=== PATIENT | female | born 1935 | race Caucasian/White ===

== ENCOUNTER 2022-12-25 05:11 | Inpatient (IN) | payer OTHER ==
[~2022-12-25] VITALS: Ht 167.6 cm; Wt 68.0 kg
[2022-12-25 05:15] VITALS: BP 126/82; PULSE 80; RESP 46; TEMP 97.8; O2SAT 97
[2022-12-25] MEDS ORDERED: NACL 0.9% 1,000 ML IV ONE ×2 (05:25→08:40)
[2022-12-25 06:51] LABS: EOSINOPHILS # (AUTO) 0.1 K/uL (0-0.4); EOSINOPHILS % (AUTO) 0.9 % (0.0-4.0); HEMATOCRIT 44.7 % (36-48); HEMOGLOBIN 15.1 g/dL (12.0-16.0); LYMPHOCYTES # (AUTO) 0.3 K/uL (2.5-16.5); LYMPHOCYTES % (AUTO) 2.5 % (20.5-51.1); MEAN CORPUSCULAR HEMOGLOBIN 33 pg (27-31); MEAN CORPUSCULAR HGB CONC 34 g/dL (33-37); MEAN CORPUSCULAR VOLUME 97.1 fL (80-94); MONOCYTES # (AUTO) 0.5 K/uL (0.8-1.0); MONOCYTES % (AUTO) 4.7 % (1.7-9.3); NEUTROPHILS # (AUTO) 10.1 K/uL (1.8-7.7); NEUTROPHILS % (AUTO) 91.9 % (42.2-75.2); PLATELET COUNT (AUTO) 179 K/uL (140-450); RED BLOOD CELL COUNT(AUTO) 4.61 MIL/uL (4.20-5.40); RED CELL DISTRIBUTION WIDTH 13.7 % (11.6-13.7)
[2022-12-25 07:12] LABS: LACTIC ACID 1.1 mmol/L (0.4-2.0)
[2022-12-25 07:17] LABS: APPEARANCE,URINE CLEAR (CLEAR); BILIRUBIN,URINE NEGATIVE (NEGATIVE); BLOOD, URINE TRACE-I (NEGATIVE); COLOR,URINE YELLOW (YELLOW); LEUKOCYTE ESTERASE ,URINE NEGATIVE (NEGATIVE); NITRITE, URINE NEGATIVE (NEGATIVE); PROTEIN,URINE 1+ (NEGATIVE); UGLUCOSE NEGATIVE (NEGATIVE); UROBILINOGEN,URINE 0.2 EU/dL (0.2 - 1)
[2022-12-25 07:19] LABS: ALANINE AMINOTRANSFERASE 29 U/L (12-78); ALBUMIN 3.5 g/dL (3.4-5.0); ALKALINE PHOSPHATASE 149 U/L (50-136); ANION GAP 15.2 (8-16); ASPARTATE AMINOTRANSFERASE 48 U/L (15-37); CHLORIDE 103 mmol/L (98-107); CREATININE 0.8 mg/dL (0.6-1.3); GLUCOSE 99 mg/dL (74-106); POTASSIUM 5.2 mmol/L (3.5-5.1); SODIUM SERUM 140 mmol/L (136-145); TOTAL BILIRUBIN 0.5 mg/dL (0.0-1.0); TOTAL PROTEIN, SERUM 7.6 g/dL (6.4-8.2); UREA NITROGEN, BLOOD 39 mg/dL (7-18)
[2022-12-25 09:12] LABS: BACTERIA,URINE 10-30 (MOD) /HPF (None Seen); MUCUS,URINE None Seen /LPF (None Seen); RBC,URINE 0-5 /HPF (0-5); SQUAMOUS EPITHELIAL CELL,UR 4-10 (MOD) /LPF (0-3 (FEW)); TRICHOMONAS,URINE None Seen /HPF (None Seen); WBC,URINE 0-5 /HPF (0-5); YEAST,URINE None Seen /HPF (None Seen)
[2022-12-25 09:13] LABS: FINE GRANULAR CASTS,URINE 0-10 /LPF (None Seen)
[2022-12-25] MEDS ORDERED: OLANZapine 5 MG ODT PO ONE (09:25)
[2022-12-25] MEDS ORDERED: LORazepam 0.5 MG TAB PO ONE (09:25)
[2022-12-25] MEDS ORDERED: LORazepam 2 MG/ML VIAL IM ONE (09:30)
[2022-12-25 11:07] LABS: FLU A ANTIGEN negative (NEGATIVE); FLU B ANTIGEN NEGATIVE (NEGATIVE)
[2022-12-25] MEDS ORDERED: ACETAMINOPHEN 325 MG TAB PO PRN (11:35)
[2022-12-25] MEDS: VANCOMYCIN HCL 25 MG/ML SOLN PO SCH ×2 (12:00→18:00)
[2022-12-25] MEDS ORDERED: VANCOMYCIN 500 MG VIAL PO SCH (12:00)
[2022-12-25 19:56] VITALS: O2SAT 98
[2022-12-25 20:30] VITALS: BP 120/56; PULSE 70; PULSE 77; PULSE 80; RESP 16; RESP 18; TEMP 98; O2SAT 96; O2SAT 97
[2022-12-25] MEDS ORDERED: LEVOFLOXACIN 500 MG/D5W PREMIX 100 ML IV SCH (21:00)
[2022-12-25] MEDS: NACL 0.9% 1,000 ML IV SCH ×2 (22:24→23:44)
[2022-12-25] MEDS ORDERED: LORazepam 2 MG/ML VIAL IVP ONE (23:10)
[2022-12-26] MEDS ORDERED: LORazepam 2 MG/ML VIAL ONE (02:05)
[2022-12-26 03:00] VITALS: PULSE 70; RESP 16; O2SAT 97
[2022-12-26 04:00] VITALS: BP 116/70; PULSE 66; PULSE 74; RESP 16; TEMP 97.8; O2SAT 96
[2022-12-26] MEDS: VANCOMYCIN HCL 25 MG/ML SOLN PO SCH ×5 (05:31→23:57)
[2022-12-26 06:26] LABS: BASOPHILS % (AUTO) 0.2 % (0.0-2.0); EOSINOPHILS # (AUTO) 0.1 K/uL (0-0.4); EOSINOPHILS % (AUTO) 2.4 % (0.0-4.0); HEMATOCRIT 39.4 % (36-48); HEMOGLOBIN 13.5 g/dL (12.0-16.0); LYMPHOCYTES # (AUTO) 0.4 K/uL (2.5-16.5); LYMPHOCYTES % (AUTO) 9.6 % (20.5-51.1); MEAN CORPUSCULAR HEMOGLOBIN 33 pg (27-31); MEAN CORPUSCULAR HGB CONC 34 g/dL (33-37); MEAN CORPUSCULAR VOLUME 95.9 fL (80-94); MONOCYTES # (AUTO) 0.3 K/uL (0.8-1.0); NEUTROPHILS # (AUTO) 3.7 K/uL (1.8-7.7); NEUTROPHILS % (AUTO) 81.8 % (42.2-75.2); PLATELET COUNT (AUTO) 150 K/uL (140-450); RED BLOOD CELL COUNT(AUTO) 4.11 MIL/uL (4.20-5.40); RED CELL DISTRIBUTION WIDTH 13.6 % (11.6-13.7); WHITE BLOOD COUNT (AUTO) 4.6 K/uL (4.8-10.8)
[2022-12-26 06:36] LABS: ALANINE AMINOTRANSFERASE 16 U/L (12-78); ALKALINE PHOSPHATASE 127 U/L (50-136); ANION GAP 11.4 (8-16); ASPARTATE AMINOTRANSFERASE 21 U/L (15-37); CALCIUM 7.3 mg/dL (8.5-10.1); CARBON DIOXIDE 24.6 mmol/L (21-32); CHLORIDE 110 mmol/L (98-107); CREATININE 0.7 mg/dL (0.6-1.3); GLUCOSE 80 mg/dL (74-106); MAGNESIUM 1.8 mg/dL (1.8-2.4); PHOSPHORUS 2.8 mg/dL (2.5-4.9); SODIUM SERUM 142 mmol/L (136-145); TOTAL BILIRUBIN 0.4 mg/dL (0.0-1.0); TOTAL PROTEIN, SERUM 6.2 g/dL (6.4-8.2); UREA NITROGEN, BLOOD 28 mg/dL (7-18)
[2022-12-26 08:00] VITALS: BP 116/66; PULSE 56; PULSE 79; RESP 18; TEMP 96.2; O2SAT 100
[2022-12-26] MEDS ORDERED: FURO-572 PO (09:33)
[2022-12-26] MEDS ORDERED: [UNRECOGNIZED DRUG - CODE] PO (09:33)
[2022-12-26] MEDS ORDERED: TRAV2.5D2 OP (09:33)
[2022-12-26] MEDS ORDERED: TRAZ-343 PO (09:33)
[2022-12-26] MEDS: NACL 0.9% 1,000 ML IV SCH ×2 (11:00→17:35)
[2022-12-26 12:00] VITALS: BP 128/73; PULSE 73; PULSE 91; RESP 18; TEMP 97.2; O2SAT 96
[2022-12-26] MEDS ORDERED: HALOPERIDOL IM 5 MG/ML VIAL IM PRN (12:40)
[2022-12-26 16:00] VITALS: BP 152/87; PULSE 104; PULSE 89; RESP 18; TEMP 97.6; O2SAT 98
[2022-12-26 20:00] VITALS: BP 149/79; PULSE 111; PULSE 92; RESP 19; TEMP 99.3; O2SAT 94
[2022-12-26] MEDS: LEVOFLOXACIN 250 MG/D5 PREMIX 50 ML IV SCH (20:44)
[2022-12-27] VITALS: BP 152/83; PULSE 104; PULSE 115; RESP 18; TEMP 100.3; O2SAT 96
[2022-12-27] MEDS: NACL 0.9% 1,000 ML IV SCH ×3 (03:35→23:15)
[2022-12-27 04:00] VITALS: BP 154/98; PULSE 110; PULSE 97; RESP 18; TEMP 99.7; O2SAT 96
[2022-12-27] MEDS: VANCOMYCIN HCL 25 MG/ML SOLN PO SCH ×3 (05:46→18:00)
[2022-12-27 05:56] LABS: BASOPHILS % (AUTO) 0.2 % (0.0-2.0); EOSINOPHILS % (AUTO) 0.1 % (0.0-4.0); HEMATOCRIT 39.7 % (36-48); HEMOGLOBIN 13.8 g/dL (12.0-16.0); LYMPHOCYTES # (AUTO) 0.5 K/uL (2.5-16.5); LYMPHOCYTES % (AUTO) 5.6 % (20.5-51.1); MEAN CORPUSCULAR HEMOGLOBIN 33 pg (27-31); MEAN CORPUSCULAR HGB CONC 35 g/dL (33-37); MEAN CORPUSCULAR VOLUME 94.2 fL (80-94); MONOCYTES # (AUTO) 0.7 K/uL (0.8-1.0); MONOCYTES % (AUTO) 7.7 % (1.7-9.3); NEUTROPHILS % (AUTO) 86.4 % (42.2-75.2); PLATELET COUNT (AUTO) 178 K/uL (140-450); RED BLOOD CELL COUNT(AUTO) 4.22 MIL/uL (4.20-5.40); RED CELL DISTRIBUTION WIDTH 13.4 % (11.6-13.7); WHITE BLOOD COUNT (AUTO) 9.3 K/uL (4.8-10.8)
[2022-12-27 06:27] LABS: ALANINE AMINOTRANSFERASE 21 U/L (12-78); ALBUMIN 3.4 g/dL (3.4-5.0); ALKALINE PHOSPHATASE 128 U/L (50-136); ASPARTATE AMINOTRANSFERASE 42 U/L (15-37); CARBON DIOXIDE 19.1 mmol/L (21-32); CHLORIDE 109 mmol/L (98-107); GLUCOSE 98 mg/dL (74-106); MAGNESIUM 1.7 mg/dL (1.8-2.4); PHOSPHORUS 2.7 mg/dL (2.5-4.9); POTASSIUM 4.1 mmol/L (3.5-5.1); SODIUM SERUM 142 mmol/L (136-145); TOTAL BILIRUBIN 0.6 mg/dL (0.0-1.0); TOTAL PROTEIN, SERUM 6.6 g/dL (6.4-8.2); UREA NITROGEN, BLOOD 24 mg/dL (7-18)
[2022-12-27 08:00] VITALS: BP 124/73; PULSE 86; PULSE 92; PULSE 93; RESP 18; RESP 19; TEMP 98.2; O2SAT 95
[2022-12-27] MEDS ORDERED: OLAN2.5T1 PO (08:04)
[2022-12-27] MEDS ORDERED: ALPR0.5T2 PO (08:04)
[2022-12-27] MEDS ORDERED: ALPR0.252 PO (08:04)
[2022-12-27] MEDS ORDERED: TEMA15CA24 PO (08:04)
[2022-12-27] MEDS: LEVOTHYROXINE PO SCH (11:29)
[2022-12-27] MEDS: SODIUM BICARBONATE PO SCH (11:29)
[2022-12-27] MEDS: LIOTHYRONINE PO SCH (11:29)
[2022-12-27 12:00] VITALS: BP 123/77; PULSE 103; PULSE 83; RESP 20; TEMP 97.9; O2SAT 98
[2022-12-27 16:00] VITALS: BP 124/72; PULSE 91; PULSE 94; RESP 18; TEMP 98; O2SAT 98
[2022-12-27] MEDS ORDERED: CALCIUM GLUC 1 GM/50 mL NS BAG 50 ML IV SCH (18:00)
[2022-12-27] MEDS ORDERED: MAG SULF 2000 MG/WATER PREMIX 50 ML IV SCH (18:30)
[2022-12-27 20:00] VITALS: BP 127/85; PULSE 106; PULSE 74; PULSE 77; RESP 16; RESP 18; TEMP 99.2; O2SAT 95
[2022-12-27] MEDS: LEVOFLOXACIN 250 MG/D5 PREMIX 50 ML IV SCH (23:14)
[2022-12-28] VITALS: BP 153/92; PULSE 106; PULSE 85; RESP 18; TEMP 99; O2SAT 95
[2022-12-28] MEDS: VANCOMYCIN HCL 25 MG/ML SOLN PO SCH ×4 (01:09→18:19)
[2022-12-28 04:00] VITALS: BP 134/73; PULSE 86; PULSE 89; RESP 18; TEMP 98; O2SAT 96
[2022-12-28 06:12] LABS: ANION GAP 13.9 (8-16); CALCIUM 7.6 mg/dL (8.5-10.1); CARBON DIOXIDE 23.5 mmol/L (21-32); CHLORIDE 107 mmol/L (98-107); CREATININE 0.9 mg/dL (0.6-1.3); GLUCOSE 95 mg/dL (74-106); POTASSIUM 3.4 mmol/L (3.5-5.1); SODIUM SERUM 141 mmol/L (136-145); UREA NITROGEN, BLOOD 14 mg/dL (7-18)
[2022-12-28 06:18] LABS: BASOPHILS % (AUTO) 0.3 % (0.0-2.0); EOSINOPHILS % (AUTO) 0.5 % (0.0-4.0); LYMPHOCYTES % (AUTO) 12.8 % (20.5-51.1); MEAN CORPUSCULAR HEMOGLOBIN 33 pg (27-31); MEAN CORPUSCULAR HGB CONC 35 g/dL (33-37); MEAN CORPUSCULAR VOLUME 93.7 fL (80-94); MONOCYTES # (AUTO) 0.6 K/uL (0.8-1.0); MONOCYTES % (AUTO) 7.9 % (1.7-9.3); NEUTROPHILS # (AUTO) 6.3 K/uL (1.8-7.7); NEUTROPHILS % (AUTO) 78.5 % (42.2-75.2); PLATELET COUNT (AUTO) 163 K/uL (140-450); RED BLOOD CELL COUNT(AUTO) 4.27 MIL/uL (4.20-5.40); RED CELL DISTRIBUTION WIDTH 13.1 % (11.6-13.7)
[2022-12-28] MEDS ORDERED: LORazepam 2 MG/ML VIAL IVP PRN (06:20)
[2022-12-28] MEDS ORDERED: HALOPERIDOL IM 5 MG/ML VIAL IM PRN (06:22)
[2022-12-28 08:00] VITALS: BP 142/88; PULSE 73; PULSE 83; RESP 17; TEMP 97.3; O2SAT 97
[2022-12-28] MEDS: SODIUM BICARBONATE PO SCH (09:19)
[2022-12-28] MEDS: LEVOTHYROXINE PO SCH (09:19)
[2022-12-28] MEDS: LIOTHYRONINE PO SCH (09:19)
[2022-12-28] MEDS: NACL 0.9% 1,000 ML IV SCH ×3 (09:26→21:34)
[2022-12-28 12:00] VITALS: BP 131/74; PULSE 69; PULSE 72; RESP 18; TEMP 98.2; O2SAT 97
[2022-12-28] MEDS ORDERED: POTASSIUM CHLORIDE 10 MEQ TABER PO SCH (13:22)
[2022-12-28 16:00] VITALS: BP 153/96; PULSE 106; PULSE 98; RESP 18; TEMP 98; O2SAT 98
[2022-12-28 20:00] VITALS: BP 115/71; PULSE 70; PULSE 75; RESP 18; TEMP 97.5; O2SAT 95
[2022-12-28] MEDS: LEVOFLOXACIN 250 MG/D5 PREMIX 50 ML IV SCH (21:50)
[2022-12-29] VITALS: BP 132/80; PULSE 60; PULSE 86; RESP 18; TEMP 97.7; O2SAT 94
[2022-12-29] MEDS: VANCOMYCIN HCL 25 MG/ML SOLN PO SCH ×4 (00:29→12:38)
[2022-12-29 04:00] VITALS: BP 121/71; PULSE 70; PULSE 74; RESP 18; TEMP 98; O2SAT 97
[2022-12-29 05:31] LABS: BASOPHILS % (AUTO) 0.3 % (0.0-2.0); EOSINOPHILS # (AUTO) 0.1 K/uL (0-0.4); EOSINOPHILS % (AUTO) 1.2 % (0.0-4.0); HEMATOCRIT 36.6 % (36-48); HEMOGLOBIN 12.6 g/dL (12.0-16.0); LYMPHOCYTES # (AUTO) 1.1 K/uL (2.5-16.5); MEAN CORPUSCULAR HEMOGLOBIN 33 pg (27-31); MEAN CORPUSCULAR HGB CONC 35 g/dL (33-37); MEAN CORPUSCULAR VOLUME 94.9 fL (80-94); MONOCYTES # (AUTO) 0.6 K/uL (0.8-1.0); NEUTROPHILS # (AUTO) 5.7 K/uL (1.8-7.7); NEUTROPHILS % (AUTO) 75.5 % (42.2-75.2); PLATELET COUNT (AUTO) 145 K/uL (140-450); RED BLOOD CELL COUNT(AUTO) 3.86 MIL/uL (4.20-5.40); RED CELL DISTRIBUTION WIDTH 13.6 % (11.6-13.7); WHITE BLOOD COUNT (AUTO) 7.5 K/uL (4.8-10.8)
[2022-12-29] MEDS: NACL 0.9% 1,000 ML IV SCH (05:35)
[2022-12-29 05:46] LABS: CHLORIDE 110 mmol/L (98-107); POTASSIUM 3.7 mmol/L (3.5-5.1); SODIUM SERUM 142 mmol/L (136-145)
[2022-12-29 06:10] LABS: ALANINE AMINOTRANSFERASE 31 U/L (12-78); ALBUMIN 2.6 g/dL (3.4-5.0); ALKALINE PHOSPHATASE 93 U/L (50-136); ANION GAP 10.4 (8-16); ASPARTATE AMINOTRANSFERASE 50 U/L (15-37); CALCIUM 7.2 mg/dL (8.5-10.1); CARBON DIOXIDE 25.3 mmol/L (21-32); CREATININE 0.8 mg/dL (0.6-1.3); GLUCOSE 81 mg/dL (74-106); MAGNESIUM 1.7 mg/dL (1.8-2.4); PHOSPHORUS 2.9 mg/dL (2.5-4.9); TOTAL BILIRUBIN 0.4 mg/dL (0.0-1.0); TOTAL PROTEIN, SERUM 5.3 g/dL (6.4-8.2); UREA NITROGEN, BLOOD 14 mg/dL (7-18)
[2022-12-29] MEDS ORDERED: PHENobarbital 30 MG TAB ONE (07:59)
[2022-12-29 08:00] VITALS: BP 134/81; PULSE 65; PULSE 71; PULSE 75; RESP 18; TEMP 97.4; O2SAT 98
[2022-12-29] MEDS: LIOTHYRONINE PO SCH (08:03)
[2022-12-29] MEDS: SODIUM BICARBONATE PO SCH (08:03)
[2022-12-29] MEDS: LEVOTHYROXINE PO SCH (08:03)
[2022-12-29] MEDS ORDERED: PHENobarbital 30 MG TAB PO SCH (09:00)
[2022-12-29] MEDS ORDERED: MAG SULF 2000 MG/WATER PREMIX 50 ML IV SCH (11:00)
[2022-12-29 12:00] VITALS: BP 117/60; PULSE 61; RESP 18; TEMP 97.1; O2SAT 94
[2022-12-29 13:01] VITALS: BP 117/60; PULSE 61; TEMP 97.1
[2022-12-29] MEDS ORDERED: CALCIUM GLUC 1 GM/50 mL NS BAG 50 ML IV SCH (14:00)
== END 2022-12-29 14:30 | disposition home or self-care (01) | DRG 371 ==
LOC: MED 05:11 → MTU 11:39
PROVIDERS: ADMIT Student in an Organized Health Care Education/Training Program; ATTEND Student in an Organized Health Care Education/Training Program
DX: A04.72 Enterocolitis due to Clostridium difficile, not specified as recurrent (principal); E43 Unspecified severe protein-calorie malnutrition; E87.5 Hyperkalemia; F03.90 Unspecified dementia, unspecified severity, without behavioral disturbance, psychotic disturbance, mood disturbance, and anxiety; E03.9 Hypothyroidism, unspecified; G40.909 Epilepsy, unspecified, not intractable, without status epilepticus; Z20.822 Contact with and (suspected) exposure to COVID-19; D72.829 Elevated white blood cell count, unspecified; E83.52 Hypercalcemia; E83.41 Hypermagnesemia; E88.09 Other disorders of plasma-protein metabolism, not elsewhere classified; Z88.0 Allergy status to penicillin; Z88.8 Allergy status to other drugs, medicaments and biological substances; Z88.1 Allergy status to other antibiotic agents; Z68.24 Body mass index [BMI] 24.0-24.9, adult; K52.9 Noninfective gastroenteritis and colitis, unspecified
CPT/HCPCS: 36415; 71045; 80048; 80053; 81001; 83605; 83735; 84100; 84484; 85025; 85651; 86140; 87040; 87081; 87086; 89055; 93005; 96360; 96372; 97112; 97116; 97163-GP; 97530; 99285; J0610; J1630; J1956; J2060; J3475